=== PATIENT | male | born 1930 ===

== ENCOUNTER 2019-05-12 12:30 | Inpatient (IN) | payer OTHER ==
[~2019-05-12] VITALS: Ht 177.8 cm; Wt 78.9 kg
[2019-05-12] MEDS ORDERED: COZAAR100 MG PO (17:17)
[2019-05-12] MEDS ORDERED: NIFEDIPINE20 MG PO (17:17)
[2019-05-12] MEDS ORDERED: TERAZOSIN HCL10 MG PO (17:18)
[2019-05-19] MEDS ORDERED: ELIQUIS2.5 MG PO (06:35)
[2019-05-19] MEDS ORDERED: OXYCONTIN10 M1 PO (06:35)
[2019-05-19] MEDS ORDERED: INTEGRA PLUS C1 EACH PO (06:35)
== END 2019-05-19 13:46 | DRG 469 ==
LOC: O/R 12:30 → SURH 05-16 05:10 → O/R 05-16 05:10 → SURH 05-16 16:10
PROVIDERS: ADMIT Orthopaedic Surgery Sports Medicine
PROC: 0SRC0J9 Replacement of Right Knee Joint with Synthetic Substitute, Cemented, Open Approach (ICD-10-PCS; principal; 2019-05-16 10:45)
DX: M17.11 Unilateral primary osteoarthritis, right knee (principal); N18.6 End stage renal disease; I12.0 Hypertensive chronic kidney disease with stage 5 chronic kidney disease or end stage renal disease; N17.8 Other acute kidney failure; E11.22 Type 2 diabetes mellitus with diabetic chronic kidney disease; Z79.4 Long term (current) use of insulin; Z99.2 Dependence on renal dialysis